=== PATIENT | male | born 1940 | race Caucasian/White ===

== ENCOUNTER → 2016-09-21 | Outpatient (CLI) | payer OTHER, BC ==
[~2016-09-21] MED LIST: ALEVE220 M2 PO; ANALGESIC325 M1 PO; ANDROGEL5 GM TP; ASACOL400 MG PO; BACTROBAN CREAM15 GM TP; CRESTOR40 MG PO; XANAX0.5 MG PO
== END | disposition home or self-care (01) ==
LOC: RAD 12:47 → EDSTATUS 13:00 → RAD 13:00
DX: J98.59 Other diseases of mediastinum, not elsewhere classified (principal); R91.8 Other nonspecific abnormal finding of lung field; K76.89 Other specified diseases of liver; I25.10 Atherosclerotic heart disease of native coronary artery without angina pectoris; Z95.5 Presence of coronary angioplasty implant and graft
CPT/HCPCS: 75571

== ENCOUNTER 2016-10-06 22:40 | Observation (INO) | payer OTHER, BC ==
[~2016-10-06] VITALS: Ht 190.5 cm; Wt 100.6 kg
[~2016-10-06 22:40] MED LIST changes: -ANDROGEL5 GM TP; +ANDROGEL75 GM TD
[2016-10-06] MEDS ORDERED: DESMOPRESSIN NS (23:24)
[2016-10-06] MEDS ORDERED: NITROGLYCERIN0.4 MG SL (23:24)
[2016-10-06] MEDS ORDERED: DIAZEPAM5 MG PO (23:24)
[2016-10-06] MEDS ORDERED: COD LIVER OIL1 EACH PO (23:26)
[2016-10-06] MEDS ORDERED: FISH OIL 1,0001 EAC7 PO (23:26)
[2016-10-06] MEDS ORDERED: LO-DOSE ASPIRIN81 M2 PO (23:26)
[2016-10-06] MEDS ORDERED: CO Q-10100 MG PO (23:27)
[2016-10-06] MEDS ORDERED: VITAMIN B COMP1 EACH PO (23:28)
[2016-10-06] MEDS ORDERED: PROBIOTIC1 EAC1 PO (23:28)
[2016-10-06] MEDS ORDERED: VALERIAN ROOT100 MG PO (23:29)
[2016-10-06 23:37] LABS: HEMATOCRIT 48.3 % (38.0-50.0); MCH 28.4 PG (29.0-34.0); MCHC 32.7 G/DL (30.0-36.0); MCV 86.7 FL (86-99); MEAN PLAT.VOLUME 10.2 uM^3 (9.0-12.4); PLATELET COUNT 161 K/uL (156-360); RBC DIS.WIDTH-CV 13.3 % (11.8-14.6); RBC DIS.WIDTH-SD 42.6 % (39-53); RED BLOOD COUNT 5.57 M/uL (4.00-5.50); WHITE BLOOD COUNT 6.6 K/uL (4.1-10.2)
[2016-10-06 23:41] LABS: INTER. NORMALIZED RATIO 1.1; PROTHROMBIN TIME 11.6 SEC (10.2-12.9)
[2016-10-06 23:44] LABS: CHLORIDE 107 mEq/L (99-109); POTASSIUM 4.4 mEq/L (3.7-5.4); PTT 31.5 SEC (25-37); SODIUM 141 mEq/L (136-147)
[2016-10-06 23:46] LABS: GLUCOSE 102 mg/dL (70-99)
[2016-10-06 23:48] LABS: ANION GAP 10 MEQ/L (2-14)
[2016-10-06 23:50] LABS: GFR ESTIMATE (CALCULATED) > 59 mL/min/
[2016-10-06 23:51] LABS: UREA NITROGEN (BUN) 27 mg/dL (9-23)
[2016-10-06 23:55] LABS: TROP-I INTERPRETATION NEGATIVE; TROPONIN-I < 0.01 ng/mL (0.0-0.30)
[2016-10-07 02:10] VITALS: BP 141/77
[2016-10-07 05:29] LABS: TROP-I INTERPRETATION NEGATIVE; TROPONIN-I < 0.01 ng/mL (0.0-0.30)
[2016-10-07 06:15] LABS: HDL CHOLESTEROL 26 MG/DL (Desirable>=40); LDL CHOLESTEROL 126 mg/dL (Desirable<100); NON-HDL CHOLESTEROL 166 mg/dL (Desirable<160); TOTAL CHOLESTEROL 192 mg/dL (Desirable<200); TRIGLYCERIDES 200 MG/DL (Normal: <150)
[2016-10-07 07:59] VITALS: BP 132/65
[2016-10-07 18:00] VITALS: BP 173/77
[2016-10-07 19:00] VITALS: BP 145/71
[2016-10-07 20:22] LABS: EOSINOPHIL (%) 0.7 % (0-5); EOSINOPHIL COUNT 0.1 K/uL (0-0.3); HEMATOCRIT 48.8 % (38.0-50.0); IMMATURE GRANULOCYTE (%) 0.6 % (0.0-0.7); IMMATURE GRANULOCYTE COUNT 0.1 K/uL; INSTRUMENT ABS NEUTROPHIL CT 7.7 K/uL; LYMPHOCYTE COUNT 0.5 K/uL (1.0-2.8); MCH 29.1 PG (29.0-34.0); MCHC 33.6 G/DL (30.0-36.0); MCV 86.7 FL (86-99); MONOCYTE (%) 5.3 % (3-12); MONOCYTE COUNT 0.5 K/uL (0-0.8); NEUTROPHIL (%) 87.1 % (45-76); NEUTROPHIL COUNT 7.7 K/uL (1.8-6.4); RBC DIS.WIDTH-CV 13.6 % (11.8-14.6); RBC DIS.WIDTH-SD 43.2 % (39-53); RED BLOOD COUNT 5.63 M/uL (4.00-5.50); WHITE BLOOD COUNT 8.9 K/uL (4.1-10.2)
[2016-10-07 20:43] LABS: MEAN PLAT.VOLUME 10.7 uM^3 (9.0-12.4); PLAT.SUFFICIENCY DECREASED; PLATELET COUNT 131 K/uL (156-360)
[2016-10-07 23:00] VITALS: BP 158/72
[2016-10-08 03:15] VITALS: BP 125/63
[2016-10-08 06:20] LABS: EOSINOPHIL (%) 0.9 % (0-5); EOSINOPHIL COUNT 0.1 K/uL (0-0.3); HEMATOCRIT 48.2 % (38.0-50.0); IMMATURE GRANULOCYTE (%) 0.4 % (0.0-0.7); INSTRUMENT ABS NEUTROPHIL CT 6.4 K/uL; LYMPHOCYTE COUNT 0.3 K/uL (1.0-2.8); MCHC 33.4 G/DL (30.0-36.0); MCV 86.8 FL (86-99); MEAN PLAT.VOLUME 10.8 uM^3 (9.0-12.4); MONOCYTE (%) 10.4 % (3-12); MONOCYTE COUNT 0.8 K/uL (0-0.8); NEUTROPHIL (%) 83.7 % (45-76); NEUTROPHIL COUNT 6.4 K/uL (1.8-6.4); PLATELET COUNT 150 K/uL (156-360); RBC DIS.WIDTH-CV 13.6 % (11.8-14.6); RBC DIS.WIDTH-SD 43.6 % (39-53); RED BLOOD COUNT 5.55 M/uL (4.00-5.50); WHITE BLOOD COUNT 7.7 K/uL (4.1-10.2)
[2016-10-08 06:42] LABS: ANION GAP 9 MEQ/L (2-14); CHLORIDE 106 MEQ/L (99-109); GFR ESTIMATE (CALCULATED) > 59 mL/min/; GLUCOSE 102 mg/dL (70-99); POTASSIUM 4.4 MEQ/L (3.7-5.4); SAMPLE HEMOLYSIS CHECK 0; SAMPLE ICTERIC CHECK 0; SAMPLE LIPEMIA CHECK 0; SODIUM 138 MEQ/L (136-147); UREA NITROGEN (BUN) 21 mg/dL (9-23)
[2016-10-08 08:05] VITALS: BP 123/68
[2016-10-08] MEDS ORDERED: CLOPIDOGREL75 MG PO (09:43)
[2016-10-08] MEDS ORDERED: LOPRESSOR25 MG PO (09:43)
[2016-10-08] MEDS ORDERED: CRESTOR20 MG PO (09:44)
== END 2016-10-08 13:48 | disposition home or self-care (01) ==
LOC: EME 22:40 → 5WEST 10-07 00:20 → EDOF 10-07 00:20 → ENRESERV 10-07 00:22 → 5WEST 10-07 01:25 → ENRESERV 10-07 13:04 → 4EAST 10-07 17:12
PROVIDERS: Emergency Medicine; Hospitalist; Internal Medicine Cardiovascular Disease; Physician Assistant Medical
DX: I25.110 Atherosclerotic heart disease of native coronary artery with unstable angina pectoris (principal); G89.29 Other chronic pain; M54.9 Dorsalgia, unspecified; M54.2 Cervicalgia; E78.5 Hyperlipidemia, unspecified; F41.9 Anxiety disorder, unspecified; G47.33 Obstructive sleep apnea (adult) (pediatric); I10 Essential (primary) hypertension; R68.84 Jaw pain; M79.602 Pain in left arm; Z79.82 Long term (current) use of aspirin; Z82.49 Family history of ischemic heart disease and other diseases of the circulatory system
CPT/HCPCS: 71020; 80048; 80061; 84484; 85025; 85027; 85347; 85610; 85730; 93005; 99281; 99284; C1725; C1760; C1769; C1874; C1887; C1894; G0378; J1644; J1650; J2250; J3010; J3246; J7030

== ENCOUNTER → 2017-10-25 | Outpatient (CLI) | payer BC, OTHER ==
[~2017-10-25] MED LIST changes: +CLOPIDOGREL75 MG PO; +CO Q-10100 MG PO; +COD LIVER OIL1 EACH PO; +CRESTOR20 MG PO; +DESMOPRESSIN NS; +DIAZEPAM5 MG PO; +FISH OIL 1,0001 EAC7 PO; +LO-DOSE ASPIRIN81 M2 PO; +LOPRESSOR25 MG PO; +NITROGLYCERIN0.4 MG SL; +PROBIOTIC1 EAC1 PO; +VALERIAN ROOT100 MG PO; +VITAMIN B COMP1 EACH PO
== END | disposition home or self-care (01) ==
LOC: RAD 10-24 13:00
DX: I25.118 Atherosclerotic heart disease of native coronary artery with other forms of angina pectoris (principal); Z95.5 Presence of coronary angioplasty implant and graft
CPT/HCPCS: 75571; 75574